=== PATIENT | male | born 1965 ===

== ENCOUNTER 2016-08-13 03:09 | Emergency (ER) | payer SELFPAY ==
[2016-08-13 03:24] VITALS: BMI 28.1
[2016-08-13] MEDS ORDERED: Sodium Chloride 0.9% 1,000 ML IV STA ×3 (03:26→05:21)
[2016-08-13 03:28] VITALS: RESP 18
--- NOTE | 2016-08-13 03:51 | ED PDOC ---
HPI: Hypertension/Hypotension Time Seen by Provider: 08/13/16 03:11 Chief Complaint (Nursing): High Blood Pressure Past Medical History Vital Signs: Last Vital Signs Temp 102.6 F H 08/13/16 03:25 Pulse 150 H 08/13/16 03:25 Resp 18 08/13/16 03:25 BP 150/87 08/13/16 03:25 Pulse Ox 94 L 08/13/16 03:25 - Medical History PMH: HTN - Immunization History Hx Influenza Vaccination: No Hx Pneumococcal Vaccination: No - Home Medications Home Medications: Ambulatory Orders Medication Instructions Recorded oxyCODONE/Acetaminophen [Percocet 1 ea PO Q8 PRN #10 tab 12/02/15 5/325 mg Tab] - Allergies Allergies/Adverse Reactions: Allergies Allergy/AdvReac Type Severity Reaction Status Date / Time No Known Allergies Allergy Verified 04/02/14 11:27 - ECG O2 Sat by Pulse Oximetry: 94
--- NOTE | 2016-08-13 03:53 | ED PDOC ---
HPI: General Adult Time Seen by Provider: 08/13/16 03:11 Chief Complaint (Nursing): High Blood Pressure Chief Complaint (Provider): fever, chills, body aches History Per: Patient History/Exam Limitations: no limitations Onset/Duration Of Symptoms: Hrs (4) Have you had recent travel within the past 21 days to any of the following countries: [place], [place], [place] or [place]?: No Current Symptoms Are (Timing): Still Present Additional Complaint(s): 50yo male with PMHx including HTN and left hip surgery presents to the ED with c /o acute onset fever, chills, body aches x 4 hours. Patient reports being in a park earlier in the day and a few hours later felt uncomfortable with headache and diffuse myalgias. Notes nausea as well. Denies vomiting, cough, SOB, chest pain. Past Medical History Reviewed: Historical Data, Nursing Documentation, Vital Signs Vital Signs: Last Vital Signs Temp 99.0 F 08/13/16 04:58 Pulse 126 H 08/13/16 04:58 Resp 18 08/13/16 04:58 BP 142/80 08/13/16 04:58 Pulse Ox 96 08/13/16 04:58 - Medical History PMH: HTN - Surgical History Other surgeries: left hip - Family History Family History: States: No Known Family Hx - Social History Current smoker - smoking cessation education provided: No Alcohol: None Drugs: Denies - Immunization History Hx Influenza Vaccination: No Hx Pneumococcal Vaccination: No - Home Medications Home Medications: Ambulatory Orders Medication Instructions Recorded oxyCODONE/Acetaminophen [Percocet 1 ea PO Q8 PRN #10 tab 12/02/15 5/325 mg Tab] Oseltamivir [Tamiflu] 75 mg PO BID #9 cap 08/13/16 - Allergies Allergies/Adverse Reactions: Allergies Allergy/AdvReac Type Severity Reaction Status Date / Time No Known Allergies Allergy Verified 04/02/14 11:27 Review of Systems ROS Statement: Except As Marked, All Systems Reviewed And Found Negative Constitutional: Positive for: Fever, Chills, Other (body aches ) Cardiovascular: Negative for: Chest Pain Respiratory: Negative for: Cough, Shortness of Breath Gastrointestinal: Positive for: Nausea. Negative for: Vomiting Neurological: Positive for: Headache Physical Exam - Reviewed Nursing Documentation Reviewed: Yes Vital Signs Reviewed: Yes - Physical Exam Appears: Positive for: Well, No Acute Distress, Uncomfortable Head Exam: Positive for: ATRAUMATIC, NORMAL INSPECTION, NORMOCEPHALIC Skin: Positive for: Normal Color, Warm, Dry Eye Exam: Positive for: Normal appearance, EOMI, PERRL ENT: Positive for: Normal ENT Inspection Neck: Positive for: Normal, Painless ROM, Supple Cardiovascular/Chest: Positive for: Tachycardia. Negative for: Murmur Respiratory: Positive for: Normal Breath Sounds. Negative for: Wheezing, Respiratory Distress Gastrointestinal/Abdominal: Positive for: Normal Exam, Bowel Sounds, Soft. Negative for: Tenderness Back: Positive for: Normal Inspection. Negative for: L CVA Tenderness, R CVA Tenderness Extremity: Positive for: Normal ROM. Negative for: Deformity, Swelling Neurologic/Psych: Positive for: Alert, Oriented. Negative for: Motor/Sensory Deficits - Laboratory Results Result Diagrams: 08/13/16 03:55 08/13/16 03:55 - ECG O2 Sat by Pulse Oximetry: 94 Medical Decision Making Medical Decision Makin: Impression: 50yo male w/ febrile illness and clinical presentation of flu Plan: EKG Labs IVF, Tamiflu 75mg PO, Tylenol 975mg PO, Zofran 4mg IV flu swab blood culture reassess 0640: Patient reports marked improvement in symptoms. Labs reviewed, show no clinically significant abnormalities except mild leukocytosis. Although flu swab negative, will treat patient for flu with tamiflu due to strong clinical suspicion based on presentation. Stable for d/c. Dx: flu stable Scribe Attestation: Documented by Chong Nash acting as a scribe for Hernán Zavala MD. Provider Scribe Attestation: All medical record entries made by the Scribe were at my direction and personally dictated by me. I have reviewed the chart and agree that the record accurately reflects my personal performance of the history, physical exam, medical decision making, and the department course for this patient. I have also personally directed, reviewed, and agree with the discharge instructions and disposition. Disposition - Clinical Impression Clinical Impression: Influenza - Patient ED Disposition Is Patient to be Admitted: No - Disposition Disposition: Routine/Home Disposition Time: 06:40 Condition: STABLE Prescriptions: Oseltamivir [Tamiflu] 75 mg PO BID #9 cap Instructions: Influenza (ED)
[2016-08-13 04:02] LABS: RBC URINE 2 /hpf (0-3); URINE BILIRUBIN NEGATIVE (NEGATIVE); URINE BLOOD NEGATIVE (NEGATIVE); URINE COLOR YELLOW (YELLOW); URINE GLUCOSE (UA) NEG (Normal); URINE KETONE NEGATIVE (NEGATIVE); URINE LEUKOCYTE ESTERASE NEG Leu/uL (Negative); URINE PROTEIN NEGATIVE (NEGATIVE); URINE UROBILINOGEN 0.2-1.0 mg/dL (0.2-1.0); WBC URINE < 1 /hpf (0-5)
[2016-08-13 04:07] LABS: ALB/GLOB RATIO 1.4 (1.0-2.1); ALKALINE PHOSPHATASE 122 U/L (38-126); ALT/SGPT 49 U/L (21-72); AST/SGOT 46 U/L (17-59); BLOOD UREA NITROGEN 22 mg/dl (9-20); CALCIUM 9.3 mg/dL (8.4-10.2); CARBON DIOXIDE 25 mmol/L (22-30); CHLORIDE 105 mmol/L (98-107); GFR AFRICAN-AMERICAN > 60; GLUCOSE,RANDOM 139 mg/dL (75-110); POTASSIUM 3.9 MMOL/L (3.6-5.0); SODIUM 144 mmol/l (132-148); TOTAL PROTEIN 7.5 G/DL (6.3-8.2)
[2016-08-13 04:14] LABS: BASO % 0.1 % (0.0-2.0); HEMATOCRIT 44.5 % (35.0-51.0); LYMPH # 0.5 K/uL (1.0-4.3); MEAN CELL VOLUME 87.2 fl (80.0-94.0); MEAN CORPUSCULAR HEMOGLOBIN 29.6 pg (27.0-31.0); MEAN PLATELET VOLUME 8.8 fl (7.2-11.7); MONO # 0.6 K/uL (0.0-0.8); MONO % 3.9 % (0.0-10.0); NEUT # 14.7 K/uL (1.8-7.0); PLATELET COUNT 179 K/uL (130-400); RED CELL DISTRIBUTION WIDTH 13.8 % (11.5-14.5); WHITE BLOOD COUNT 15.8 K/uL (4.8-10.8)
[2016-08-13 05:14] LABS: NEUTROPHIL 93 % (42-75); TOTAL CELLS COUNTED 100
[2016-08-13 05:17] LABS: STOMATOCYTES SLIGHT
[2016-08-13 06:54] VITALS: BP 144/79; PULSE 96; TEMP 99.1
[2016-08-13 06:55] VITALS: O2SAT 94
--- NOTE | 2016-08-13 10:09 | RAD ---
HISTORY: fever COMPARISON: No prior. TECHNIQUE: Chest PA and lateral FINDINGS: LUNGS: Mild right basilar atelectasis and or scarring. Slight elevation right hemidiaphragm could be due to eventration. Minimal left basilar atelectasis PLEURA: No significant pleural effusion identified. No pneumothorax apparent. CARDIOVASCULAR: Normal. OSSEOUS STRUCTURES: No significant abnormalities. VISUALIZED UPPER ABDOMEN: Normal. OTHER FINDINGS: None. IMPRESSION: Mild right basilar atelectasis and or scarring. Slight elevation right hemidiaphragm could be due to eventration. Minimal left basilar atelectasis
--- NOTE | 2016-08-13 18:06 | CARD ---
APPROVED REPORT EKG Measurement Heart [id number] 140P50 [id number] <Conclusion> Sinus tachycardia Otherwise normal ECG
== END 2016-08-13 06:55 | disposition home or self-care (01) ==
LOC: H.ER 03:09
DX: J11.1 Influenza due to unidentified influenza virus with other respiratory manifestations (principal); I10 Essential (primary) hypertension

== ENCOUNTER 2016-10-07 10:23 | Day surgery (SDC) | payer SELFPAY ==
[2016-10-07] MEDS ORDERED: Lactated Ringer's 500 ML IV ONE (11:09)
[2016-10-07 11:17] VITALS: TEMP 97; O2SAT 100
[2016-10-07] MEDS ORDERED: Propofol 10 mg/ml Inj (20 ML) ONE (11:30)
[2016-10-07 12:12] VITALS: BP 112/78; PULSE 70; RESP 18
== END 2016-10-07 12:18 | disposition home or self-care (01) ==
LOC: H.ENDO 10:23
PROVIDERS: ATTEND Internal Medicine Gastroenterology
DX: Z12.11 Encounter for screening for malignant neoplasm of colon (principal); I10 Essential (primary) hypertension; K64.8 Other hemorrhoids